=== PATIENT | female | born 1955 | race Caucasian/White ===

== ENCOUNTER 2018-03-11 06:50 | Day surgery (SDC) | payer BC ==
[~2018-03-11 06:50] MED LIST: Sodium Chloride 0.9% 10 ML Syringe FLUSH PRN
[2018-03-11] MEDS: Lactated Ringers 1,000 ML IV SCH (07:39)
[2018-03-11] MEDS ORDERED: Propofol 200 MG/20 ML SDV IV ONE (08:00)
--- NOTE | 2018-03-11 08:32 | PCM.OPNOTE ---
- General Post-Op/Procedure Note Date of Surgery/Procedure: 03/11/18 Operative Procedure(s): c scope with bx Findings: colitis descending colon Pre Op Diagnosis: screening Post-Op Diagnosis: colitis descending colon Anesthesia Technique: MAC Primary Surgeon: David Kessler Anesthesia Provider: Vickie Castro Pathology: descending colon Complications: None Condition: Good Free Text/Narrative:: see dictation
--- NOTE | 2018-03-11 10:24 | PREOP ---
ADMISSION DATE: 03/11/2018 CHIEF COMPLAINT: Colon cancer screening. HISTORY OF PRESENT ILLNESS: This is a 62-year-old white female due for screening colonoscopy. She has had no complaints and has no issues. She has never had a colonoscopy. Does have a history of colon polyps with her daughter as well as her mother. MEDICATIONS: There are no medications. ALLERGIES: She has an allergy to penicillin. PAST MEDICAL HISTORY: Significant for hyperlipidemia and allergies. PAST SURGICAL HISTORY: Significant for right knee arthroscopy and a left knee arthroscopy. FAMILY HISTORY: Significant for esophageal cancer, hyperlipidemia, cerebral aneurysm, hypertension, diabetes, and heart disease. SOCIAL HISTORY: The patient is , has 4 children. She works as an senior financial accountant. She does not smoke, does not drink. REVIEW OF SYSTEMS: HEENT: Positive only for glasses. RESPIRATORY: Negative. CARDIOVASCULAR: Negative. GASTROINTESTINAL: Negative. PHYSICAL EXAMINATION: VITAL SIGNS: Reviewed. She is stable and afebrile. HEENT: Grossly within normal limits. LUNGS: Clear to auscultation. HEART: Regular rate and rhythm. ABDOMEN: Soft and nontender. SKIN: Warm and dry. ASSESSMENT: Need for screening colonoscopy for colon cancer screening. PLAN: C-scope procedure and risks explained to the patient to include bleeding, perforation, and infection. The patient expressed understanding, asked us to proceed. /[id number] /MODL
--- NOTE | 2018-03-11 10:35 | OR ---
DATE OF OPERATION: 03/11/2018 SURGEON: David Kessler MD PROCEDURE PERFORMED: Colonoscopy with cold forceps biopsy. PREOPERATIVE DIAGNOSIS: Colon cancer screening. POSTOPERATIVE DIAGNOSIS: Colitis of the descending colon. INDICATIONS FOR PROCEDURE: This is a 62-year-old white female who presents for her screening colonoscopy. She was offered and accepted the same. DESCRIPTION OF OPERATION: After an excellent IV sedation was administered, digital rectal exam was performed. No marked abnormality was noted. The flexible colonoscope was inserted and advanced into the cecum without difficulty. The prep was excellent. The following findings were noted: Ascending colon, unremarkable; transverse colon, unremarkable; descending colon, there was a segment involving the distal half of the descending colon to the sigmoid that was markedly inflamed and highly suggestive of colitis. Multiple biopsies were taken and submitted in one container. Sigmoid and rectum was unremarkable. The colon was deflated as the scope was removed. The patient tolerated the procedure well and was taken to recovery room in good condition. /[id number] PAPITO/VANESSA
== END 2018-03-11 09:10 | disposition home or self-care (01) ==
LOC: FB.SDS 06:50
PROVIDERS: ATTEND Surgery
DX: Z12.11 Encounter for screening for malignant neoplasm of colon (principal); K52.9 Noninfective gastroenteritis and colitis, unspecified; G47.30 Sleep apnea, unspecified; Z88.0 Allergy status to penicillin; Z79.899 Other long term (current) drug therapy; Z80.0 Family history of malignant neoplasm of digestive organs
CPT/HCPCS: 88305; J2704; J7120